=== PATIENT | male | born 1965 | race Two or more races ===

== ENCOUNTER 2022-02-19 07:15 | Outpatient (CLI) | payer OTHER | END 2022-02-19 07:19 | disposition home or self-care (01) | LOC: LAB 07:15 | PROVIDERS: ATTEND Internal Medicine Nephrology | DX: N18.32 Chronic kidney disease, stage 3b (principal); I10 Essential (primary) hypertension; R80.9 Proteinuria, unspecified ==

== ENCOUNTER 2022-02-19 07:41 | Outpatient (CLI) | payer OTHER | END 2022-02-19 07:47 | disposition home or self-care (01) | LOC: SONOGRAMA 07:41 | PROVIDERS: ATTEND Internal Medicine Nephrology | DX: N40.1 Benign prostatic hyperplasia with lower urinary tract symptoms (principal) ==

== ENCOUNTER 2022-05-24 07:21 | Outpatient (CLI) | payer OTHER | END 2022-05-24 07:31 | disposition home or self-care (01) | LOC: LAB 07:21 | PROVIDERS: ATTEND Internal Medicine Nephrology | DX: E87.3 Alkalosis (principal); N18.32 Chronic kidney disease, stage 3b; R80.9 Proteinuria, unspecified ==

== ENCOUNTER 2022-05-29 08:39 | Outpatient (CLI) | payer OTHER | END 2022-05-29 08:40 | disposition home or self-care (01) | LOC: LAB 08:39 | PROVIDERS: ATTEND Internal Medicine Nephrology | DX: E87.3 Alkalosis (principal); N18.32 Chronic kidney disease, stage 3b; R80.9 Proteinuria, unspecified ==

== ENCOUNTER → 2023-11-29 08:17 | Outpatient (CLI) | payer OTHER ==
[2023-11-29 10:09] LABS: PH,URINE 5.5 (5.0-8.0); URINE APPEARANCE Clear; URINE BILIRRUBIN Negative (NEGATIVE); URINE BLOOD Trace; URINE COLOR Yellow; URINE GLUCOSE Negative (NEGATIVE); URINE LEUKOCYTE Negative; URINE NITRATE Negative; URINE UROBILINOGEN 0.2 E.U./dl
[2023-11-29 10:25] LABS: URINE BACTERIA 3.7 uL (0.0-1933); URINE EPITHELIAL CELLS 0.9 uL (0.0-38.8); URINE PROTEIN 100 (NEGATIVE); URINE RBC 1.8 uL (0.0-20.8); URINE WBC 1.3 uL (0.0-23.2)
[2023-11-29 10:27] LABS: HEMATOCRIT 47.2 % (39.0-48.0); HEMOGLOBIN 15.9 g/dL (13-16.00); MEAN CELL VOLUME 90.7 fL (80.0-100.00); MEAN CORPUSCULAR HEMOGLOBIN 30.6 pg (27.00-32.0); MEAN CORPUSCULAR HGB CONC 33.8 g/dl (32.0-36.0); PLATELET COUNT 184 K/uL (150-450); RED BLOOD COUNT 5.21 M/uL (4.00-6.00); RED CELL DISTRIBUTION WIDTH 14.9 % (11.5-14.5)
[2023-11-29 11:28] LABS: ALBUMIN 3.7 gm/dL (3.4-5.0); BILIRUBIN TOTAL 0.97 mg/dL (0.3-1.2); CALCIUM 10.1 mg/dL (8.5-10.1); CHOL HDL RATIO 2.7 (0-5.0); CREATININE SERUM 1.6 mg/dL (0.70-1.30); GFR 44.46; GLOBULINA 3.4 G/DL (2.4-3.5); POTASSIUM 4.25 mEq/L (3.5-5.1); PROSTATIC SPECIFIC ANTIGEN 0.764 NG/ML (0.010-4.00); T4 TOTAL 8.15 UG/DL (4.5-12.1); TOTAL PROTEIN 7.1 gm/dL (6.4-8.2); TSH 1.64 uIU/mL (0.358-3.74)
[2023-12-01 10:23] LABS: T3 TOTAL 1.06 ng/ml (0.846-2.02); VITAMIN D3 25 HYDROXY 18.81 ng/ml (30-120)
== END | disposition home or self-care (01) ==
LOC: LAB 08:17
PROVIDERS: ATTEND Family Medicine
DX: E78.2 Mixed hyperlipidemia (principal); E13.9 Other specified diabetes mellitus without complications; N40.0 Benign prostatic hyperplasia without lower urinary tract symptoms; I10 Essential (primary) hypertension; E55.9 Vitamin D deficiency, unspecified; D64.1 Secondary sideroblastic anemia due to disease